=== PATIENT | female | born 1965 | race Caucasian/White ===

== ENCOUNTER 2016-11-07 21:54 | Emergency (ER) | payer OTHER ==
[~2016-11-07] VITALS: Ht 172.7 cm; Wt 87.0 kg
[~2016-11-07 21:54] MED LIST: LISI-167 PO; METF500T4 PO
[2016-11-07 22:00] VITALS: BP 191/110
== END 2016-11-07 22:21 | disposition left against medical advice (07) ==
LOC: ED 22:15
DX: N93.9 Abnormal uterine and vaginal bleeding, unspecified (principal); R42 Dizziness and giddiness; Z53.21 Procedure and treatment not carried out due to patient leaving prior to being seen by health care provider

== ENCOUNTER 2020-08-26 19:43 | Emergency (ER) | payer OTHER ==
[~2020-08-26] VITALS: Ht 172.7 cm; Wt 88.2 kg
[~2020-08-26 19:43] MED LIST changes: +METF500T17 PO; -METF500T4 PO
--- NOTE | 2020-08-26 20:05 | NUR ---
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
--- NOTE | 2020-08-26 20:43 | NUR ---
ERP at bedside for eval.
[2020-08-26] MEDS ORDERED: MORPHINE SULFATE 4 MG/ML, 1ML ONE (20:59)
[2020-08-26] MEDS ORDERED: MORPHINE SULFATE 4 MG/ML, 1ML IVPush PRN (21:00)
[2020-08-26] MEDS ORDERED: ONDANSETRON 2MG/ML, 2ML IVPush ONE (21:00)
[2020-08-26] MEDS ORDERED: ONDANSETRON 2MG/ML, 2ML ONE (21:00)
[2020-08-26] MEDS ORDERED: SODIUM CHLORIDE FLUSH 10ML SYR IVF ONE (21:00)
--- NOTE | 2020-08-26 21:08 | NUR ---
IV started, bloods drawn and sent. Medicated per order, side rails up call boyle in reach. Connected to cont pulse ox, b/p.
[2020-08-26 21:11] LABS: BASOPHILS % (AUTO) 1 % (0-1); EOSINOPHILS % (AUTO) 4 % (1-7); LYMPHOCYTES % (AUTO) 41 % (22-44); MEAN CORPUSCULAR HEMOGLOBIN 30.2 pg (27.0-34.8); MEAN CORPUSCULAR HGB CONC 34.2 g/dL (32.4-35.8); MONOCYTES % (AUTO) 8 % (2-9); NEUTROPHILS % (AUTO) 46 % (42-75); PLATELET COUNT 297 x10^3/uL (130-400); RED BLOOD COUNT 4.29 x10^6/uL (3.82-5.3); RED CELL DISTRIBUTION WIDTH 12.7 % (9.6-15.2)
[2020-08-26 21:12] LABS: MD NO
[2020-08-26 21:21] LABS: MICROSCOPIC AUTO
[2020-08-26 21:21] LABS: ALANINE AMINOTRANSFERASE 29 U/L (12-78); ALBUMIN 3.6 g/dL (3.4-5.0); ANION GAP 8 mmol/L (5-15); CHLORIDE 110 mmol/L (98-107)
[2020-08-26 21:23] LABS: ALKALINE PHOSPHATASE 99 U/L (45-117); BILIRUBIN,TOTAL 0.3 mg/dL (0.2-1.0); TOTAL PROTEIN 7.6 g/dL (6.4-8.2)
--- NOTE | 2020-08-26 21:41 | NUR ---
Re-eval no pain no n/v. Waiting for CT. VSS. AIDET provided.
--- NOTE | 2020-08-26 21:42 | NUR ---
To CT via [facility].
[2020-08-26] MEDS ORDERED: OMNIPAQUE 350 MG/ML, 100ML BOTTLE ONE (21:51)
--- NOTE | 2020-08-26 22:24 | NUR ---
Back from CT, VSS, no pain.
[2020-08-26 22:31] VITALS: BP 112/74
--- NOTE | 2020-08-26 22:32 | NUR ---
IV dc cath intact, VSS. Pt driving home. Dc home with instruct and f/u to return to ER if worse or concerns. Pt verbalizes understanding.
== END 2020-08-26 22:42 | disposition home or self-care (01) ==
LOC: ED 21:30
DX: A09 Infectious gastroenteritis and colitis, unspecified (principal); R10.31 Right lower quadrant pain; E11.9 Type 2 diabetes mellitus without complications; I10 Essential (primary) hypertension; R11.0 Nausea
CPT/HCPCS: 36415; 74177; 80053; 81001; 83690; 85025; 87086; 87147; 96374; 96375; 99285; J2270; J2405; Q9967

== ENCOUNTER 2021-01-14 20:25 | Emergency (ER) | payer OTHER ==
[~2021-01-14] VITALS: Ht 172.7 cm; Wt 88.9 kg
--- NOTE | 2021-01-14 22:50 | NUR ---
PT ROOMED AT THIS TIME.
--- NOTE | 2021-01-14 22:58 | NUR ---
pt walked back to this rn's room at this time. pt came into ed tonight due to a mass under right armpit and DENISE x5days, reports sensitivity to touch on the back left side and frontal pain. denies n/v, states over a year ago she fell on two seperate occassions and hit back left area of her head, since then randomly will have sensitivity to touch, denies LOC with either fall. pt also states that she found a hardened mass in the upper right underarm/armpit region that is painful and growing over the past day. pt nad, Patient is resting comfortably in bed. Bed in lowest, rails engaged, call light on lap. at bs Vital Signs within normal limits. WCTM.
[2021-01-14] MEDS ORDERED: SEMA0.25 SC (23:03)
[2021-01-14] MEDS ORDERED: water pill PO (23:04)
[2021-01-14] MEDS ORDERED: LIDOCAINE-MPF 1%, 5ML ONE (23:17)
[2021-01-14] MEDS ORDERED: LIDOCAINE-MPF 1%, 5ML INFIL ONE (23:30)
[2021-01-14 23:32] VITALS: BP 110/71
--- NOTE | 2021-01-14 23:33 | NUR ---
PT WOUND DRESSED AND PROVIDED DRESSING TO CHANGE OUT WHEN NEEDED. Patient/ given discharge instructions and they have confirmed that they understand the instructions. Patient ambulatory with steady gait. NAD, all questions answered appropriately, denies additional needs at this time. No personal belongings left in room after discharge.
== END 2021-01-14 23:52 | disposition home or self-care (01) ==
LOC: ED 20:55
DX: R51.9 Headache, unspecified (principal); L02.411 Cutaneous abscess of right axilla; L02.413 Cutaneous abscess of right upper limb; I10 Essential (primary) hypertension; E11.9 Type 2 diabetes mellitus without complications
CPT/HCPCS: 10060; 99283